=== PATIENT | male | born 1995 | race Two or more races ===

== ENCOUNTER 2021-04-29 10:40 | Emergency (ER) | payer OTHER, SELFPAY ==
[2021-04-29 12:14] VITALS: BP 139/66; PULSE 96; RESP 18; TEMP 37.2; O2SAT 97; BMI 25.1
[2021-04-29] MEDS: Ibuprofen 800 MG TABLET PO (13:15)
[2021-04-29] MEDS: cephALEXin 500 MG CAPSULE PO (13:15)
[2021-04-29] MEDS: oxyCODONE HCl Immed Release 5 MG TABLET PO (13:16)
[2021-04-29] MEDS: Lidocaine HCl 2 % MPF 5 ML VIAL SUBCUT (13:17)
[2021-04-29] MEDS: Lidocaine HCl 2 % MPF 5 ML VIAL INFILTRATI (13:18)
--- NOTE | 2021-04-29 14:00 | ED.SKABFB ---
HPI - Skin/Abscess/Foreign Bdy General Chief complaint: Skin/Abscess/Foreign Body Stated complaint: cyst on back Time Seen by Provider: 04/29/21 12:44 Source: patient Mode of arrival: ambulatory Limitations: no limitations History of Present Illness complaint: abscess/boil Onset (ago): day(s) (5) Location: buttocks Severity: severe Severity scale (1-10): >10 Quality: aching and constant Pain Consistency: constant Relieving factors: none Exacerbating factors: palpation and movement Context: none Associated symptoms: denies other symptoms Treatments prior to arrival: none Related Data Previous Rx's Medication Instructions Recorded cephalexin 500 mg capsule 500 mg PO Q6H 10 Days #40 cap 04/29/21 doxycycline monohydrate 100 mg 100 mg PO BID 10 Days #20 cap 04/29/21 capsule ibuprofen 800 mg tablet 800 mg PO Q8H PRN #14 tab 04/29/21 oxycodone 5 mg tablet 5 mg PO Q6H PRN #14 tab 04/29/21 Allergies Allergy/AdvReac Type Severity Reaction Status Date / Time No Known Allergies Allergy Verified 04/29/21 12:13 Review of Systems Review of Systems: Constitutional : Denies history of same, Denies any other sites involved, Denies IV drug use, Denies history of MRSA, Denies swollen glands, Denies injury, Denies Fever, Denies Chills, + Sig Pain, Denies Systemic symptoms Cardiovascular : No Chest Pain, No SOB Respiratory : No Dyspnea Gastrointestinal : No abdominal pain Musculoskeletal : No Joint Swelling Skin : + abscess with surrounding erythema and bloody/purulent discharge noted per patient, No skin laceration, No Foreign bodies, Denies bites Neuro : No Weakness, No Numbness/tingling Psych : No SI/HI/thoughts of self injury Yes all other systems are reviewed and are negative PMFSH Past Medical History Attestation statement: The following information was validated with the patient. Medical History No known health problems Social History Social History Advance Directives: No Physical Exam Vital Signs: Vital Signs: Last Vital Signs Temp 98.9 F 04/29/21 12:14 Pulse 96 04/29/21 12:14 Resp 18 04/29/21 12:14 BP 139/66 04/29/21 12:14 Pulse Ox 97 04/29/21 12:14 BMI result Body Mass Index 25.1 vital signs have been reviewed as normal and appeared to be correct. Blood pressure normal Heart rate normal. Respiration rate normal. Temperature normal. Oxygen saturation normal. Appearance: Alert. Oriented X3. No acute distress. Head: Normal external exam. Normocephalic. Atraumatic. Eyes: PERRLA. EOMI. Conjunctiva and sclera normal. Eyelids normal. ENT: Pharynx normal. Uvula midline. Moist mucous membranes. Neck: Normal inspection. Neck supple. FROM. CVS: Normal heart rate and rhythm. Respiratory: No respiratory distress. Painless inspiration. Skin: Skin warm and dry. Normal skin color. Normal skin turgor. To the pilonidal aspect/lower back patient has 2 moderate-sized abscesses with moderate surrounding erythema 1 is already draining although not enough. No foreign bodies are noted. No additional rashes/lesions/lacerations noted. Extremities: No lower extremity edema. Extremities exhibit normal range of motion. Extremities nontender. Neuro: Oriented X 3. No motor deficit. No sensory deficit. Reflexes normal. Normal steady gait. No focal neuro deficits noted. Vascular: + radial pulses/+ 2 distal pedal pulses/+2 dorsalis pedis b/l. Normal cap refill. No cyanosis noted to upper extremity nails and lower extremity toes nails. Course Course Course Narrative: IMP/Plan: abscess. No systemic toxicity, and pt looks well. + surrounding cellulitis. Not c/w nec fasc/ myositis/ DVT/ osteomyelitis. patient now status post I&D of abscess and patient tolerated procedure well. No complications. No labs or imaging indicated at this time. Will DC home antibiotics and symptomatic treatment instructions return if any new or worsening symptoms to follow up with primary care provider. Patient understands agrees this plan. MDM - Skin/Abscess/Foreign Bdy Medical Records Attestation: I reviewed the patient's medical records. Procedures Abscess I/D Site: back (Pilonidal aspect) Local Anesthetic: lidocaine 2% Amount of anesthesia used (mL): 10 Technique: incised with blade Amount of fluid expressed (mL): 30 Sent for culture/gram staining?: No Irrigation: Yes Packing used?: iodoform Complications: other (No complications) Critical Care Time Critical Care Time Critical Care Time: Yes Total Critical Care Time: 60 Attestation: I personally attest to this time spent taking care of the patient Discharge Plan Discharge Clinical Impression: Cellulitis, Abscess of skin or subcutaneous tissue Patient Disposition: Home, Self-Care Instructions: Cellulitis (ED), Abscess Incision and Drainage (DC), Warm Compress or Soak (ED) Prescriptions: New cephalexin 500 mg capsule 500 mg PO Q6H 10 Days Qty: 40 RF: 0 doxycycline monohydrate 100 mg capsule 100 mg PO BID 10 Days Qty: 20 RF: 0 oxycodone 5 mg tablet 5 mg PO Q6H PRN (Reason: pain) Qty: 14 RF: 0 ibuprofen 800 mg tablet 800 mg PO Q8H PRN (Reason: pain) Qty: 14 RF: 0 Referrals: Radhames Wells MD [Physician] - 2 days (Call to make a follow-up appointment within the next week for pilonidal abscess) Noris Walker PA [Emergency Midlevel Provider] - 3 days (For wound check/packing removal) Stand Alone Forms: Work/School Release Print Language: Vietnamese
== END 2021-04-29 14:08 | disposition home or self-care (01) ==
PROVIDERS: Emergency Provider Emergency Medicine
DX: L05.01 Pilonidal cyst with abscess (principal); L03.317 Cellulitis of buttock
CPT/HCPCS: 10080; 99284

== ENCOUNTER 2021-05-02 11:50 | Emergency (ER) | payer OTHER, SELFPAY ==
[2021-05-02 12:40] VITALS: BP 108/43; PULSE 57; RESP 16; TEMP 37; O2SAT 98; BMI 25.1
--- NOTE | 2021-05-02 13:25 | ED.SKABFB ---
HPI - Skin/Abscess/Foreign Bdy General Chief complaint: Skin/Abscess/Foreign Body Stated complaint: wound cheack packing removal Time Seen by Provider: 05/02/21 13:24 Source: patient Mode of arrival: ambulatory Limitations: no limitations History of Present Illness HPI narrative: 04/29 s/p I+D of pilonidal started on cephalexin and doxy complaint: abscess/boil Onset (ago): day(s) (3) Tetanus up to date: yes Location: buttocks (pilonidal) Severity: mild Pain Consistency: constant Relieving factors: none Exacerbating factors: none Context: none Associated symptoms: denies other symptoms Treatments prior to arrival: bandages and other (s/p ID and antibiotics at home) Related Data Previous Rx's Medication Instructions Recorded cephalexin 500 mg capsule 500 mg PO Q6H 10 Days #40 cap 04/29/21 doxycycline monohydrate 100 mg 100 mg PO BID 10 Days #20 cap 04/29/21 capsule ibuprofen 800 mg tablet 800 mg PO Q8H PRN #14 tab 04/29/21 oxycodone 5 mg tablet 5 mg PO Q6H PRN #14 tab 04/29/21 Allergies Allergy/AdvReac Type Severity Reaction Status Date / Time No Known Allergies Allergy Verified 04/29/21 12:13 Review of Systems Review of Systems: Constitutional : No Fever, No Chills ENT/Mouth : No sore throat, No Rhinorrhea Eyes: No Eye Pain, No Swelling, No Redness Cardiovascular : No Chest Pain, No SOB Respiratory : No Cough, No Sputum Gastrointestinal : No Nausea, No Vomiting, No Diarrhea, No abdominal Pain Genitourinary : No Dysuria, No Hematuria Musculoskeletal : No joint pain, No Myalgias, No Joint Swelling Skin : pos Skin Lesions, no skin rash Neuro : No Weakness, No Numbness, No Headache Psych : No Anxiety, No Depression PMFSH Past Medical History Medical History No known health problems Social History Social History (Updated 05/02/21 @ 14:04 by Susan Prado DO) Patient Tobacco Use Status: Never used Tobacco Advance Directives: No Advance Directives Information Provided: Yes Physical Exam Vital Signs: Vital Signs: Last Vital Signs Temp 98.6 F 05/02/21 12:40 Pulse 57 05/02/21 12:40 Resp 16 05/02/21 12:40 BP 108/43 L 05/02/21 12:40 Pulse Ox 98 05/02/21 12:40 BMI result Body Mass Index 25.1 Appearance: Alert. Oriented X3. No acute distress. Eyes: Pupils equal, round and reactive to light. ENT: Pharynx normal. Neck: Normal inspection. Neck supple. CVS: Pulses normal. Respiratory: No respiratory distress. Abdomen: Soft and non-tender. Rectal: healing flat abscess areas x 2 on buttocks - no sig erythema, mild ttp minimal scant ss drainage, no fluctuance noted Skin: Skin warm and dry. Normal skin color. Normal skin turgor. Extremities: No lower extremity edema. Neuro: Oriented X 3. No motor deficit. No sensory deficit. MDM - Skin/Abscess/Foreign Bdy MDM Narrative Medical decision making narrative: 26 yo male with recent I/D of buttocks abscess doing well on antibiotics - no fevers, removed packing without issue given reasons to return - not toxic, no IBD history has appointment with surgery on 05/14. plan to continue oral antibiotics Discharge Plan Discharge Clinical Impression: Abscess packing removal Patient Disposition: Home, Self-Care Instructions: Bandage Change (ED), Abscess (ED) Additional Instructions: return to ED for any worsening symptoms or concerns continue antibiotics, monitor for redness, increased swelling or pain - please follow up with surgeon Prescriptions: No Action cephalexin 500 mg capsule 500 mg PO Q6H 10 Days Qty: 40 RF: 0 doxycycline monohydrate 100 mg capsule 100 mg PO BID 10 Days Qty: 20 RF: 0 oxycodone 5 mg tablet 5 mg PO Q6H PRN (Reason: pain) Qty: 14 RF: 0 ibuprofen 800 mg tablet 800 mg PO Q8H PRN (Reason: pain) Qty: 14 RF: 0
== END 2021-05-02 14:07 | disposition home or self-care (01) ==
LOC: HO.ED 14:01
PROVIDERS: Emergency Provider Emergency Medicine
DX: Z48.01 Encounter for change or removal of surgical wound dressing (principal)
CPT/HCPCS: 99283

== ENCOUNTER → 2021-05-14 12:43 | Outpatient (BNVA) | payer OTHER, SELFPAY | PROVIDERS: Visit Provider Surgery | DX: L05.91 Pilonidal cyst without abscess (principal) | CPT/HCPCS: 99202 ==

== ENCOUNTER 2021-06-17 09:14 | Day surgery (SDC) | payer OTHER, SELFPAY ==
[2021-06-09 12:25] VITALS: BMI 29.7
--- NOTE | 2021-06-13 09:41 | P.CONAN_ITS ---
Documented by User: Krista Salomon NP 06/13/21 09:42 HPI - Anesthesia Eval Consult details Narrative: 26yo M for Excision of Pilonidal Cyst Sacrococcygeal Area PMFSH Active Problems Active Problems: All Active Problems (Updated 05/14/21 @ 13:12 by Radhames Wells MD) Pilonidal cyst (Acute) Past Medical History Medical History (Updated 05/14/21 @ 13:12 by Radhames Wells MD) No known health problems Pilonidal cyst Social History Social History Are you a primary resident care assistant to a significant other at home: No Do you presently have visiting nurse or other home services: No Patient Tobacco Use Status: Never used Tobacco Use of substances other than those prescribed or required for medical reasons: Yes Substance Use Frequency: Weekly Have you been hit, kicked, punched, or otherwise hurt by someone within the past year? If so, by whom?: No Are you DNR?: No Advance Directives: No Advance Directives Information Provided: No Advance Directives on File: No Recently lost weight without trying: No Eating poorly because of decreased appetite: No Nutrition Risks: No Nutritional Risk Poor oral hygiene: No Meds Allergies Allergy/AdvReac Type Severity Reaction Status Date / Time No Known Allergies Allergy Verified 06/09/21 12:24 Exam Exam Date and Time: June 13, 2021 0941 Height,Weight and Vital Signs: Height 5 ft 11 in Weight 96.615 kg Assessment and Plan Assessment Anesthesia Assessment: Chart Reviewed Documented by User: Olayinka Nath MD 06/17/21 15:16 PMFSH Past Medical History Medical History (Updated 05/14/21 @ 13:12 by Radhames Wells MD) No known health problems Pilonidal cyst Functional capacity: independent ambulation Family History Family history of problems with anesthesia: No Surgical History History of Problems with Anesthesia: No (No prior anesthesia ) Social History Social History Are you a primary resident care assistant to a significant other at home: No Do you presently have visiting nurse or other home services: No Patient Tobacco Use Status: Never used Tobacco Use of substances other than those prescribed or required for medical reasons: Yes Substance Use Frequency: Weekly Have you been hit, kicked, punched, or otherwise hurt by someone within the past year? If so, by whom?: No Are you DNR?: No Advance Directives: No Advance Directives Information Provided: No Advance Directives on File: No Recently lost weight without trying: No Eating poorly because of decreased appetite: No Nutrition Risks: No Nutritional Risk Poor oral hygiene: No Meds Allergies Allergy/AdvReac Type Severity Reaction Status Date / Time No Known Allergies Allergy Verified 06/09/21 12:24 Exam Airway Mallampati Class: III Neck ROM: Full Loose/Missing/Broken Teeth: Yes Heart: rrr Lungs: bl breath sounds Assessment and Plan Assessment Anesthesia Assessment: Anesthesia Plan Discussed Final Anesthetic Review Family History of Problems with Anesthesia: No History of Problems with Anesthesia: No (No prior anesthesia ) NPO: Yes ASA Class: II Final Preanesthetic Review: Meds/Allgs Chart Reviewed, Consent Obtained/Reviewed and Anes Risks/Benef Reviewed Patient Risk: Intermediate Procedure Risk: Intermediate Anesthetic Plan Anesthetic Plan: GA Disposition: Standard PACU
[2021-06-17] VITALS (7 sets, daily range): BP systolic 111–139; BP diastolic 65–85; PULSE 57–74; RESP 16–18; TEMP 36.4–36.8; O2SAT 96–99
[2021-06-17] MEDS: Lactated Ringers 1,000 ML 100 ML IVCONT (10:26)
--- NOTE | 2021-06-17 12:27 | P.HPSUR_ITS ---
Pre-Procedural Eval Section A Date of Service: 06/17/21 Section B Chief Complaint: Pilonidal Cyst Details of Present Illness: Had an abscess on the coccygeal area consistent with a pilonidal cyst, with I and D done in the ER by the ER staff Relevant Family History (Specify if Yes): No Relevant Social History: None Present Medications: see Short Stay Collaborative assessment Medical History: No relevant PMH History of Previous Operations: No relevant previous surgery Allergies: Allergies Allergy/AdvReac Type Severity Reaction Status Date / Time No Known Allergies Allergy Verified 06/09/21 12:24 Review of Systems Sugical H&P ROS: Negative: Constitution, Cardiovascular, Respiratory, Neurological, Psychiatric, Hem-Onc, Allergic/Immunologic, Gastrointestinal, Genitourinary, Musculoskeletal, Integumentary, Endocrine and Eyes/Ea rs/Nose/Throat Exam Surgical H&P Exam: Normal: HEENT, Normal: Heart, Normal: Lungs, Normal: Extremities, Normal: Abdomen, Normal: Skin and Normal: Neurological Exam Comment: pilonidal cyst, sacrococcygeal area Plan I have reviewed the history and physical and performed a pertinent physical examination on my patient. No changes have occurred unless specified.
--- NOTE | 2021-06-17 13:32 | P.OP_ITS ---
Operative Note Operative Note Date of Service: 06/17/21 Narrative: Preop diagnosis: Pilonidal cyst, sacrococcygeal area Postop diagnosis: Pilonidal cyst, sacrococcygeal area Procedure: Excision of pilonidal cyst, sacrococcygeal area Surgeon: Radhames Wells MD assistant professor of physics: RAFFI Toro The patient is a 26-year-old male with a history of recurrent swelling pain on the area of the tailbone. He had a recent I and D in the ER for this. Findings were consistent for a pilonidal cyst. He wanted to proceed with formal excision. He understood technique of the procedure as well as the risks, benefits and alternatives He was brought to the operating room. He was placed in prone position. The buttocks were retracted with wide tape laterally. The sacrococcygeal area was prepped draped usual sterile fashion. There was note of an induration to the left of the midline note of midline pits inferior to this. I marked my plan I&D of incision with a pen to include these midline pits as well as the area of induration. I inflated this area with lidocaine 1%. I made the incision using blade 15. This carried down through the full-thickness of the skin subcutaneous fat With electrocautery. I included all the indurated areas to make sure that we had completely excised diseased tissue. We dissected posteriorly until this entire skin and subcutaneous layer was excised. The defect was about cm long and about 4 cm wide. I undermined subcutaneous flaps on both sides to allow closure without tension. I used electrocautery for hemostasis. Once hemostasis was ensured, I reapposed the deep subcutaneous layer with Dexon 3-0 interrupted sutures. Skin closure was achieved with nylon 3-0 simple interrupted sutures alternating with vertical mattress sutures. Dressings were applied. The incision was infiltrated with Marcaine 0.5% for postop analgesia and the procedure was completed The patient tolerated procedure well. There were no complications noted. Initial and final counts of sponges and instruments were correct. Estimated blood loss was about 25 cc . The patient was extubated without difficulty and transferred to the recovery room with stable vital signs.
== END 2021-06-17 15:16 | disposition home or self-care (01) ==
PROVIDERS: Visit Provider Surgery
PROC: (CPT 11771; principal; 2021-06-17 12:50)
DX: L05.91 Pilonidal cyst without abscess (principal)
CPT/HCPCS: 11771; 88304; J0690; J1100; J2250; J2405; J3010

== ENCOUNTER → 2021-06-30 11:32 | Outpatient (BNVA) | payer OTHER, SELFPAY | PROVIDERS: Visit Provider Surgery | DX: Z48.817 Encounter for surgical aftercare following surgery on the skin and subcutaneous tissue (principal); Z87.2 Personal history of diseases of the skin and subcutaneous tissue | CPT/HCPCS: 99212 ==